=== PATIENT | female | born 1965 | race Caucasian/White ===

== ENCOUNTER 2017-06-10 14:43 | Emergency (ER) | payer MEDICAID ==
[2017-06-10 14:53] VITALS: BMI 41.8
[2017-06-10] MEDS ORDERED: Sodium Chloride 0.9% 1,000 ML IV STA (15:19)
[2017-06-10 15:43] LABS: BASO # 0.03 K/mm3 (0.0-2.0); BASO % 0.4 % (0.0-3.0); EOS # 0.1 (0.0-0.7); EOS % 1.2 % (1.5-5.0); GRAN # 5.25 (1.4-6.5); GRAN % 68.8 % (50.0-68.0); HEMOGLOBIN 11.3 g/dL (12.0-16.0); LYMPH # 1.4 (1.2-3.4); LYMPH % 18.8 % (22.0-35.0); MEAN CELL VOLUME 66.5 fl (80.0-105.0); MEAN CORPUSCULAR HEMOGLOBIN 20.9 pg (25.0-35.0); MEAN CORPUSCULAR HGB CONC 31.4 g/dl (31.0-37.0); MONO # 0.8 (0.1-0.6); MONO % 10.8 % (1.0-6.0); PLATELET COUNT 275 10^3/uL (120.0-450.0); RBC 5.41 10^6/uL (3.5-6.1); RED CELL DISTRIBUTION WIDTH 15.8 % (11.5-14.5); WHITE BLOOD COUNT 7.6 10^3/ul (4.5-11.0)
[2017-06-10 16:07] LABS: ALB/GLOB RATIO 1.2 (1.1-1.8); ALBUMIN 3.9 g/dL (3.0-4.8); ALT/SGPT 36 U/L (7-56); AST/SGOT 28 U/L (14-36); BLOOD UREA NITROGEN 13 mg/dL (7-21); CALCIUM 9.5 mg/dL (8.4-10.5); GFR AFRICAN-AMERICAN > 60; GFR NON-AFRICAN AMERICAN > 60
[2017-06-10 16:21] LABS: URINE BILIRUBIN NEGATIVE (NEGATIVE); URINE BLOOD NEGATIVE (NEGATIVE); URINE GLUCOSE (UA) NEGATIVE (NEGATIVE); URINE LEUKOCYTE ESTERASE NEGATIVE Leu/uL (NEGATIVE); URINE NITRATE NEGATIVE (NEGATIVE); URINE PROTEIN TRACE mg/dL (<30 mg/dL); URINE UROBILINOGEN 0.2 E.U./dL (<1 E.U./dL)
[2017-06-10 16:24] LABS: URINE APPEARANCE CLEAR (CLEAR); URINE COLOR YELLOW (YELLOW)
[2017-06-10] MEDS ORDERED: Promethazine/Cod 6.25mg-10mg/5ml Syr UD PO STA (16:32)
[2017-06-10 16:39] LABS: URINE BACTERIA MOD (NEG); URINE RBC NEGATIVE /hpf (0-2)
--- NOTE | 2017-06-10 17:37 | ED PDOC ---
Arrival/HPI - General Chief Complaint: Fever Time Seen by Provider: 06/10/17 15:16 Historian: Patient - History of Present Illness Narrative History of Present Illness (Text): 06/10/17 15:17 This 52 yo female with PMHx DM, asthma, presents to this ED c/o cough, fever, nasal congestion x 2 days. Patient stated she is currently taking ABX. Patient denies recent travel, sick contact, abdominal pain, skin rash, dizziness , or abnormal gait. Patient noted vomiting phlegm from nasal congestion. Time/Duration: Other (see hpi) Context: Home Past Medical History - Provider Review Nursing Documentation Reviewed: Yes - Past History Past History: Non-Contributing - Infectious Disease Hx of Infectious Diseases: None - Tetanus Immunization Tetanus Immunization: Unknown - Past Medical History Past Medical History: Non-Contributing - Cardiac Hx Cardiac Disorders: No - Pulmonary Hx Respiratory Disorders: Yes Hx Asthma: Yes Hx Pneumonia: Yes - Neurological Hx Neurological Disorder: No - HEENT Hx HEENT Disorder: No - Renal Hx Renal Disorder: No - Endocrine/Metabolic Hx Endocrine Disorders: Yes Hx Diabetes Mellitus Type 2: Yes - Hematological/Oncological Hx Blood Disorders: No - Integumentary Hx Dermatological Disorder: No - Musculoskeletal/Rheumatological Hx Falls: No - Gastrointestinal Hx Gastrointestinal Disorders: No - Genitourinary/Gynecological Hx Genitourinary Disorders: No - Psychiatric Hx Psychophysiologic Disorder: No Hx Depression: No Hx Emotional Abuse: No Hx Physical Abuse: No Hx Substance Use: No - Surgical History Hx Section: Yes (x3) - Anesthesia Hx Anesthesia: Yes Hx Anesthesia Reactions: No Hx Malignant Hyperthermia: No - Suicidal Assessment Feels Threatened In Home Enviroment: No Family/Social History - Physician Review Nursing Documentation Reviewed: Yes Family/Social History: Other (noncontributory) Smoking Status: Never Smoked Hx Alcohol Use: No Hx Substance Use: No Hx Substance Use Treatment: No Allergies/Home Meds Allergies/Adverse Reactions: Allergies azithromycin Allergy (Mild, Verified 06/04/17 14:51) RASH Home Medications: Home Meds Medication Instructions Recorded Confirmed Sitagliptin Phos/Metformin HCl 1 tab PO BID 05/28/17 06/10/17 [Janumet 50-1,000 mg Tablet] Review of Systems - Review of Systems Constitutional: Fevers. absent: Fatigue, Weight Change, Night Sweats Eyes: Normal. absent: Vision Changes ENT: Sore Throat, Rhinorrhea. absent: Epistaxis, Sinus Congestion Respiratory: Cough Cardiovascular: Normal. absent: Chest Pain, Palpitations, Syncope Gastrointestinal: Normal. absent: Abdominal Pain, Nausea, Vomiting Genitourinary Female: Normal Musculoskeletal: Myalgias Skin: Normal. absent: Rash Neurological: Normal. absent: Headache, Dizziness, Focal Weakness, Gait Changes , Speech Changes, Facial Droop, Disequilibrium Endocrine: Normal Hemo/Lymphatic: Normal Psychiatric: Normal Physical Exam Vital Signs Temp Pulse Resp BP Pulse Ox 06/10/17 16:00 100.8 F H 06/10/17 14:52 100.8 F H 103 H 18 117/76 95 Temperature: Febrile Blood Pressure: Normal Pulse: Regular Respiratory Rate: Normal Appearance: Positive for: Well-Appearing, Non-Toxic, Comfortable Pain Distress: None Mental Status: Positive for: Alert and Oriented X 3 - Systems Exam Head: Present: Atraumatic, Normocephalic Pupils: Present: PERRL Extroacular Muscles: Present: EOMI Conjunctiva: Present: Normal Mouth: Present: Moist Mucous Membranes Pharnyx: Present: Normal. No: ERYTHEMA, EXUDATE, TONSILS ENLARGED Nose (External): Present: Atraumatic Nose (Internal): Present: Rhinorrhea Neck: Present: Normal Range of Motion Respiratory/Chest: Present: Clear to Auscultation, Good Air Exchange. No: Respiratory Distress, Accessory Muscle Use, Wheezes, Rales, Retracting, Rhonchi , Tachypneic Cardiovascular: Present: Regular Rate and Rhythm, Normal S1, S2. No: Murmurs Abdomen: Present: Normal Bowel Sounds. No: Tenderness, Distention, Peritoneal Signs, Rebound, Guarding Back: Present: Normal Inspection. No: CVA Tenderness Upper Extremity: Present: Normal Inspection, Normal ROM. No: Cyanosis, Edema Lower Extremity: Present: Normal Inspection, Normal ROM. No: Edema Neurological: Present: GCS=15, CN II-XII Intact, Speech Normal, Motor Func Grossly Intact, Normal Sensory Function, Normal Cerebellar Funct, Gait Normal Skin: Present: Warm, Dry, Normal Color. No: Rashes Psychiatric: Present: Alert, Oriented x 3, Normal Insight, Normal Concentration Medical Decision Making ED Course and Treatment: 06/10/17 17:42 Patient remained stable during the course of ED visit. Labs were normal. CXR: NAD. Patient stated she feels well and she wishes to be discharged home. Denies cp, n/v, or urinary symptoms. Lungs CTA b/l. Re-evaluation Time: 17:43 Reassessment Condition: Re-examined, Improved - Lab Interpretations Lab Results: 06/10/17 15:30 06/10/17 15:30 Lab Results 06/10/17 15:51: Urine Color Yellow, Urine Appearance Clear, Urine pH 6.0, Ur Specific [place] 1.025, Urine Protein Trace H, Urine Glucose (UA) Negative, Urine Ketones Negative, Urine Blood Negative, Urine Nitrate Negative, Urine Bilirubin Negative, Urine Urobilinogen 0.2, Ur Leukocyte Esterase Negative, Urine RBC Negative, Urine WBC 2 - 5, Ur Epithelial Cells 4 - 5, Urine Bacteria Mod 06/10/17 15:30: Influenza Typ A,B (EIA) Negative for flu a/b 06/10/17 15:30: Sodium 132, Potassium 3.9, Chloride 100, Carbon Dioxide 25, Anion Gap 11, BUN 13, Creatinine 0.8, Est GFR ( Amer) > 60, Est GFR (Non- Af Amer) > 60, Random Glucose 113 H, Calcium 9.5, Total Bilirubin 0.3, AST 28, ALT 36, Alkaline Phosphatase 63, Total Protein 7.1, Albumin 3.9, Globulin 3.2, Albumin/Globulin Ratio 1.2 06/10/17 15:30: WBC 7.6 D, RBC 5.41, Hgb 11.3 L, Hct 36.0, MCV 66.5 L D, MCH 20.9 L, MCHC 31.4, RDW 15.8 H, Plt Count 275, Gran % 68.8 H, Lymph % (Auto) 18.8 L, Harmon % (Auto) 10.8 H, Eos % (Auto) 1.2 L, Baso % (Auto) 0.4, Gran # 5.25 , Lymph # 1.4, Harmon # 0.8 H, Eos # 0.1, Baso # 0.03 I have reviewed the lab results: Yes Interpretation: No clinic. lab abnormalty - RAD Interpretation Narrative RAD Interpretations (Text): 06/10/17 17:43 Chest x-rays: NAD Radiology Orders: 06/10/17 15:20 CHEST TWO VIEWS (PA/LAT) [RAD] Stat - Medication Orders Current Medication Orders: Discontinued Medications Acetaminophen (Tylenol 325mg Tab) 975 mg PO STAT STA Stop: 06/10/17 15:22 Last Admin: 06/10/17 16:00 Dose: 975 mg MAR Pain/Vitals Document 06/10/17 16:00 SE (Rec: 06/10/17 16:00 [id number] Pain Reassessment Is This A Pain ReAssessment? No Sleep Is patient sleeping during reassessment? No Presence of Pain Presence of Pain Yes Vitals Temperature (97.6 F-99.6 F) 100.8 F Temperature Source Oral Benzonatate (Tessalon Perles) 100 mg PO STAT STA Stop: 06/10/17 16:32 Last Admin: 06/10/17 16:40 Dose: 100 mg Sodium Chloride (Sodium Chloride 0.9%) 1,000 mls @ 999 mls/hr IV .Q1H1M STA Stop: 06/10/17 16:19 Last Admin: 06/10/17 15:32 Dose: 999 mls/hr eMAR Start Stop Document 06/10/17 15:32 SE (Rec: 06/10/17 15:32 SE [id number]) Intravenous Solution Start Date 06/10/17 Start Time 15:32 Ketorolac Tromethamine (Toradol) 15 mg IVP STAT STA Stop: 06/10/17 15:21 Last Admin: 06/10/17 16:00 Dose: 15 mg MAR Pain Assessment Document 06/10/17 16:00 SE (Rec: 06/10/17 16:00 [id number] Pain Reassessment Is this a pain reassessment? No Sleep Is patient sleeping during reassessment? No Presence of Pain Presence of Pain Yes Pain Scale Used Pain Scale Used Numeric Location Pain Location Body Site Chest Description Description Burning IVP Administration Document 06/10/17 16:00 SE (Rec: 06/10/17 16:00 [id number]) Charges for Administration # of IVP Administrations 1 Promethazine HCl/Codeine (Phenergan/Codeine Oral Syrup) 5 ml PO STAT STA Stop: 06/10/17 16:33 Last Admin: 06/10/17 16:40 Dose: 5 ml Disposition/Present on Arrival - Present on Arrival Any Indicators Present on Arrival: No History of DVT/PE: No History of Uncontrolled Diabetes: Yes Urinary Catheter: No History of Decub. Ulcer: No History Surgical Site Infection Following: None - Disposition Have Diagnosis and Disposition been Completed?: Yes Diagnosis: Viral syndrome Disposition: HOME/ ROUTINE Disposition Time: 17:45 Patient Plan: Discharge Patient Problems: Current Active Problems Problem Status Onset Viral syndrome Acute Condition: GOOD Discharge Instructions (ExitCare): Viral Syndrome (ED) Additional Instructions: Call private doctor for follow up visit in 1-2 days. Take medication as instructed. Return to emergency if symptoms worsen. Prescriptions: Acetaminophen [Tylenol 325mg tab] 975 mg PO Q4H PRN #30 tab PRN Reason: Fever >100.4 F Promethazine/Codeine [Codeine/Promethazine 10 MG/5 Ml-6.25 MG/5 Ml] 5 ml PO Q4H PRN #120 ml PRN Reason: Cough Referrals: Jess Barrera MD [Family Provider] - Follow up with primary Forms: [employer] (French)
[2017-06-10 17:52] VITALS: BP 120/89; PULSE 99; RESP 17; TEMP 98.3; O2SAT 100
--- NOTE | 2017-06-10 18:53 | RAD ---
HISTORY: cough COMPARISON: 06/06/2017 TECHNIQUE: Chest PA and lateral FINDINGS: LUNGS: No active pulmonary disease. PLEURA: No significant pleural effusion identified. No pneumothorax apparent. CARDIOVASCULAR: Normal. OSSEOUS STRUCTURES: No significant abnormalities. VISUALIZED UPPER ABDOMEN: Normal. OTHER FINDINGS: None. IMPRESSION: No active disease. No significant interval change compared to the prior examination(s). Concordant results with the preliminary interpretation rendered by the emergency department physician procedure.
== END 2017-06-10 18:10 | disposition home or self-care (01) ==
LOC: ED 14:43
DX: B34.9 Viral infection, unspecified (principal); E11.9 Type 2 diabetes mellitus without complications
CPT/HCPCS: 71046; 80053; 81001; 85025; 87804; 96374; 99285; J1885; J7040

== ENCOUNTER 2017-07-26 07:54 | Day surgery (SDC) | payer MEDICAID ==
[2017-07-20 13:53] VITALS: BMI 42.0
[2017-07-26 08:35] VITALS: RESP 14
[2017-07-26] MEDS ORDERED: Albuterol 0.083% Inhal Sol (2.5 mg/3 mL) UD INH PRN (09:13)
[2017-07-26] MEDS ORDERED: Albuterol 0.083% Inhal Sol (2.5 mg/3 mL) UD ONE (09:15)
[2017-07-26] MEDS ORDERED: Sodium Chloride 0.9% 1,000 ML IV SCH (09:45)
[2017-07-26] MEDS ORDERED: Propofol 10 mg/ml Inj (20 ML) ONE (09:49)
[2017-07-26 11:37] VITALS: BP 97/57; PULSE 80; TEMP 98; O2SAT 97
== END 2017-07-26 12:17 | disposition home or self-care (01) ==
LOC: ENDO 07:54 → MERGE 07:54 → EDSEX 07:54 → ENDO 12:17
PROVIDERS: ATTEND Internal Medicine
DX: Z12.11 Encounter for screening for malignant neoplasm of colon (principal); K63.5 Polyp of colon; K64.8 Other hemorrhoids; I10 Essential (primary) hypertension; J45.909 Unspecified asthma, uncomplicated; E11.9 Type 2 diabetes mellitus without complications; Z79.84 Long term (current) use of oral hypoglycemic drugs
CPT/HCPCS: 45380; 82948; 88305; 94640; 94760; J2001; J2704; J7040 ×2

== ENCOUNTER 2017-08-16 06:18 | Day surgery (SDC) | payer MEDICAID ==
[2017-08-16] MEDS ORDERED: Albuterol 0.5% Inhal Sol (5 mg/ ml) 20 ml IH ONE (07:46)
[2017-08-16] MEDS ORDERED: Albuterol 0.083% Inhal Sol (2.5 mg/3 mL) UD ONE (07:52)
[2017-08-16] MEDS ORDERED: Propofol 10 mg/ml Inj (20 ML) ONE (08:16)
[2017-08-16 09:03] VITALS: PULSE 89
[2017-08-16 09:33] VITALS: BP 101/57; RESP 14; TEMP 97.6; O2SAT 95
[2017-08-16 09:35] VITALS: BMI 41.8
== END 2017-08-16 10:45 | disposition home or self-care (01) ==
LOC: ENDO 06:18
PROVIDERS: ATTEND Internal Medicine
DX: K29.50 Unspecified chronic gastritis without bleeding (principal); B96.81 Helicobacter pylori [H. pylori] as the cause of diseases classified elsewhere; K21.9 Gastro-esophageal reflux disease without esophagitis; E11.9 Type 2 diabetes mellitus without complications; J45.909 Unspecified asthma, uncomplicated; Z80.8 Family history of malignant neoplasm of other organs or systems; Z83.3 Family history of diabetes mellitus; Z86.19 Personal history of other infectious and parasitic diseases; Z86.010 Personal history of colon polyps; Z87.891 Personal history of nicotine dependence
CPT/HCPCS: 43239; 82948; 84703; 88305; 88342; J2001; J2704; J7040

== ENCOUNTER 2018-04-23 09:56 | Emergency (ER) | payer MEDICAID ==
[2018-04-23 09:57] VITALS: BMI 41.8
[2018-04-23 10:08] VITALS: PULSE 98; RESP 19; TEMP 98; O2SAT 99
--- NOTE | 2018-04-23 10:34 | ED PDOC ---
Arrival/HPI <Se Gil - Last Filed: 04/23/18 11:21> - General Historian: Patient, Family - History of Present Illness Narrative History of Present Illness (Text): 04/23/18 10:26 This is a 52 y o female with past medical hx DM2, asthma who was BiBEMS s/p fall at home 30 mins prior. Pt states the roof was leaking in her house and there was water all over the floor, states she slipped and fell on L hip with outstretched L leg. States she also hit back of head against wall. Fall was unwitnessed. Pt states her family came into the room after the event and guided her to sit in a chair because she was unable to get up on her own. Denies loss of consciousness or headache. States her L posterior upper thigh and hip are bothering her currently, describes pain as sharp, rates it 8/10 currently. States she has hx of chronic pain in R hip that is worse when she first wakes up, and took 1 tab of 400 mg ibuprofen this am before she fell. Denies vision changes, dizziness, chest pain, sob, n/v/d/c, abd pain, urinary complaints, or other symptoms currently. PMhx: DM2, asthma, chronic pain in R hip PSurgHx: C/s x 3 Allergies: NKDA Meds: Takes metformin, several medications for her asthma (pt unsure of names or dosages) Fam hx: denies Soc hx: denies smoking, EtOH, or illicit drug use PMD: Dr. Barrera Pharmacy: [facility] Time/Duration: 1/2 hour Symptom Onset: Sudden Symptom Course: Unchanged Quality: Stabbing Severity Level: 8 Activities at Onset: Other (Status post fall) Context: Walking, Slipped <Bony Saab - Last Filed: 04/23/18 11:26> - General Chief Complaint: Hip Pain Past Medical History - Provider Review Nursing Documentation Reviewed: Yes - Past History Past History: Non-Contributing - Infectious Disease Hx of Infectious Diseases: None - Tetanus Immunization Tetanus Immunization: Unknown - Reproductive Menopause: Yes - Past Medical History Past Medical History: Non-Contributing - Cardiac Hx Pacemaker: No - Pulmonary Hx Respiratory Disorders: Yes Hx Asthma: Yes Hx Pneumonia: Yes - Neurological Hx Paralysis: No - HEENT Hx HEENT Disorder: No - Renal Hx Renal Disorder: No - Endocrine/Metabolic Hx Endocrine Disorders: Yes Hx Diabetes Mellitus Type 2: Yes - Hematological/Oncological Hx Blood Transfusions: No - Integumentary Hx Dermatological Disorder: No - Musculoskeletal/Rheumatological Hx Musculoskeletal Disorders: No - Gastrointestinal Hx Gastrointestinal Disorders: No - Genitourinary/Gynecological Hx Genitourinary Disorders: No - Psychiatric Hx Emotional Abuse: No Hx Physical Abuse: No Hx Substance Use: No - Surgical History Hx Section: Yes (x3) - Anesthesia Hx Anesthesia: Yes Hx Anesthesia Reactions: No Hx Malignant Hyperthermia: No - Suicidal Assessment Feels Threatened In Home Enviroment: No <Bony Saab - Last Filed: 04/23/18 11:26> Family/Social History - Physician Review Nursing Documentation Reviewed: Yes Family/Social History: No Known Family HX Smoking Status: Never Smoked Hx Alcohol Use: No Hx Substance Use: No Hx Substance Use Treatment: No <Bony Saab - Last Filed: 04/23/18 11:26> Allergies/Home Meds <Se Gil - Last Filed: 04/23/18 11:21> <Bony Saab - Last Filed: 04/23/18 11:26> Allergies/Adverse Reactions: Allergies No Known Allergies Allergy (Unverified 08/16/17 07:59) Home Medications: Home Meds Medication Instructions Recorded Confirmed Albuterol HFA [Ventolin HFA 90 2 puff INH Q6H PRN 07/20/17 08/16/17 mcg/actuation (8 g)] Alogliptin Hermelindo/Metformin HCl 1 tab PO BID 07/20/17 08/16/17 [Alogliptin-Metformin 12.5-1000] Fexofenadine HCl [Shnai NF] 180 mg PO DAILY 07/20/17 08/16/17 Glipizide [Glucotrol] 5 mg PO BID 07/20/17 08/16/17 Montelukast [Singulair] 10 mg PO DAILY 07/20/17 08/16/17 Multivitamin [Multivitamins] 1 tab PO DAILY 07/20/17 08/16/17 Omeprazole 40 mg PO DAILY 07/20/17 08/16/17 Phentermine/Topiramate [Qsymia 1 cap PO DAILY 07/20/17 08/16/17 3.75 mg-23 mg Capsule] Benzonatate 200 mg PO BID 08/09/17 08/16/17 Budesonide/Formoterol Fumarate 1 puff INH BID 08/09/17 08/16/17 [Symbicort 160-4.5 Mcg Inhaler] Ergocalciferol (Vitamin D2) 50,000 units PO Q7D 08/09/17 08/16/17 [Vitamin D2] Vitamin B Complex 1 tab PO DAILY 08/09/17 08/16/17 Review of Systems - Physician Review All systems were reviewed & negative as marked: Yes <Se Gil - Last Filed: 04/23/18 11:21> - Review of Systems Constitutional: absent: Fatigue Eyes: absent: Vision Changes, Photophobia, Eye Pain ENT: absent: Hearing Changes, Tinnitus Respiratory: absent: SOB, Cough, Wheezing Cardiovascular: absent: Chest Pain, Palpitations, ARMAS Gastrointestinal: absent: Abdominal Pain, Constipation, Diarrhea, Nausea, Vomiting Musculoskeletal: absent: Back Pain, Neck Pain Skin: Normal. absent: Laceration <Bony Saab - Last Filed: 04/23/18 11:26> Physical Exam Vital Signs Reviewed: Yes Vital Signs Temp Pulse Resp BP Pulse Ox 04/23/18 10:02 98 F 98 H 19 115/57 L 99 <Se Gil - Last Filed: 04/23/18 11:21> Vital Signs Reviewed: Yes Vital Signs Temp Pulse Resp BP Pulse Ox 04/23/18 10:02 98 F 98 H 19 115/57 L 99 Temperature: Afebrile Blood Pressure: Normal Pulse: Regular Respiratory Rate: Normal Appearance: Positive for: Well-Appearing, Non-Toxic, Comfortable Pain Distress: Moderate Mental Status: Positive for: Alert and Oriented X 3 - Systems Exam Head: Present: Atraumatic, Normocephalic Pupils: Present: PERRL Extroacular Muscles: Present: EOMI Mouth: Present: Moist Mucous Membranes Respiratory/Chest: Present: Clear to Auscultation, Good Air Exchange. No: Respiratory Distress, Accessory Muscle Use, Wheezes, Rales, Rhonchi Cardiovascular: Present: Regular Rate and Rhythm, Normal S1, S2. No: Murmurs, Rub, Gallop Abdomen: Present: Normal Bowel Sounds. No: Tenderness, Distention, Rebound, Guarding, Mass/Organomegaly Upper Extremity: Present: Normal Inspection, Normal ROM, NORMAL PULSES, Neurovascularly Intact, Capillary Refill < 2s, Norm 2-Pt Discrimination. No: Cyanosis, Edema, Swelling Lower Extremity: Present: Normal Inspection, NORMAL PULSES, Normal ROM, Tenderness (Tenderness to palpation in L posterior upper thigh distal to greater tuberosity), Neurovascularly Intact, Capillary Refill < 2 s. No: Edema, Cyanosis, Erythema, Temperature Abnormalties Neurological: Present: GCS=15, CN II-XII Intact, Speech Normal, Motor Func Gross ly Intact, Normal Sensory Function, Normal Cerebellar Funct, Norm Deep Tendon Reflexes, Normal 2Pt Descrimination. No: Gait Normal (Limping on exam due to pain) Skin: Present: Warm, Dry, Normal Color. No: Rashes Psychiatric: Present: Alert, Oriented x 3, Normal Insight, Normal Concentration <Bony Saab - Last Filed: 04/23/18 11:26> Medical Decision Making ED Course and Treatment: 04/23/18 10:44 Seen and examined with the resident. Our history and physical exam reveals a m orbidly obese woman who slipped and fell on a wet floor injuring her left hip. No other trauma. She appears have pain out of proportion to her exam. The knee and ankle are normal. - RAD Interpretation Radiology Orders: 04/23/18 10:24 Hip Left [HIP MIN 2V W/ PELVIS LT] [RAD] Stat - Medication Orders Current Medication Orders: Discontinued Medications Ketorolac Tromethamine (Toradol) 30 mg IVP STAT STA Stop: 04/23/18 10:24 Last Admin: 04/23/18 10:35 Dose: 30 mg MAR Pain Assessment Document 04/23/18 10:35 GMI (Rec: 04/23/18 10:36 GMI [id number]) Pain Reassessment Is this a pain reassessment? Yes Sleep Is patient sleeping during reassessment? No Presence of Pain Presence of Pain Yes Location Left, Right or Bilateral Left Pain Location Body Site Hip Description Description Intermittent Intensity of Pain at present 5 Pain Behavior Facial Grimacing Alleviating Factors/Management Position Change Techniques Relaxation Techniques Alleviating Factors Distraction IVP Administration Document 04/23/18 10:35 GMI (Rec: 04/23/18 10:36 GMI [id number]) Charges for Administration # of IVP Administrations 1 <Tolerico,Se - Last Filed: 04/23/18 11:21> ED Course and Treatment: 04/23/18 10:39 52 y o female PMhx DM2, asthma, presents with L posterior thigh pain s/p mechanical fall at home. Plan: Toradol IM x1, L hip XR ordered. Will follow results. 04/23/18 11:24 Reassessed pt, states that her pain has improved. XR L hip demonstrates no acute fracture. Pt medically stable for discharge to home, instructed to resume ambulation at home on own. Can follow with PMD Dr. Barrera in 2-3 days after ED discharge. - RAD Interpretation Radiology Orders: 04/23/18 10:24 Hip Left [HIP MIN 2V W/ PELVIS LT] [RAD] Stat - Medication Orders Current Medication Orders: Ketorolac Tromethamine (Toradol) 30 mg IVP STAT STA Stop: 04/23/18 10:24 <Bony Saab - Last Filed: 04/23/18 11:26> Disposition/Present on Arrival <Se Gil - Last Filed: 04/23/18 11:21> - Present on Arrival Any Indicators Present on Arrival: Yes History of DVT/PE: No History of Uncontrolled Diabetes: Yes Urinary Catheter: No History of Decub. Ulcer: No History Surgical Site Infection Following: None - Disposition Have Diagnosis and Disposition been Completed?: Yes Disposition Time: 11:26 <Bony Saab - Last Filed: 04/23/18 11:26> - Disposition Diagnosis: Fall, Injury of left hip and thigh Disposition: HOME/ ROUTINE Patient Problems: Current Active Problems Problem Status Onset Fall Acute Injury of left hip and thigh Acute Condition: IMPROVED Discharge Instructions (ExitCare): Preventing Falls Print Language: [place] Additional Instructions: Please follow-up with your primary care physician within 2-3 days of discharge. Can take Ibuprofen every 6 hrs as needed for pain. Should your symptoms recur or worsen, please call your primary care physician or report to your nearest emergency department. Referrals: Jess Barrera MD [Family Provider] - Follow up with primary Forms: [employer] (Italian)
[2018-04-23 10:46] VITALS: BP 114/52
--- NOTE | 2018-04-23 13:54 | RAD ---
PROCEDURE: Left Hip X-ray Radiographs. HISTORY: L hip pain s/p fall COMPARISON: None. FINDINGS: BONES: Normal. No fracture. JOINTS: Mild degenerative osteoarthritis right hip with joint space narrowing. SOFT TISSUES: Normal. OTHER FINDINGS: None. IMPRESSION: No definitive radiographic evidence of acute displaced fracture nor dislocation. If symptoms persist or occult fracture suspected clinically recommend follow-up CT scan of the pelvis. A mild degenerative osteoarthritis right hip
== END 2018-04-23 11:38 | disposition home or self-care (01) ==
LOC: ED 09:56
DX: S79.912A Unspecified injury of left hip, initial encounter (principal); S79.922A Unspecified injury of left thigh, initial encounter; W01.0XXA Fall on same level from slipping, tripping and stumbling without subsequent striking against object, initial encounter; Y92.009 Unspecified place in unspecified non-institutional (private) residence as the place of occurrence of the external cause; E11.9 Type 2 diabetes mellitus without complications
CPT/HCPCS: 73502; 96374; 99285; J1885

== ENCOUNTER 2018-05-27 11:16 | Emergency (ER) | payer MEDICAID ==
[2018-05-27 11:17] VITALS: BMI 41.8
[2018-05-27 11:58] VITALS: BP 121/65; PULSE 72; RESP 18; TEMP 98.2; O2SAT 100
--- NOTE | 2018-05-27 12:05 | ED PDOC ---
Arrival/HPI - General Chief Complaint: ENT Problem Time Seen by Provider: 05/27/18 11:45 - History of Present Illness Narrative History of Present Illness (Text): 53 year old F not on blood thinners p/w epistaxis x 30 minutes. States bleeding would not stop for 30 minutes. States has had epistaxis multiple times, this is second episode in 2 months and has had in past as well and saw ENT. Patient denies lightheadedness, chest pain, dyspnea, palpitations. Past Medical History - Past History Past History: Non-Contributing - Infectious Disease Hx of Infectious Diseases: None - Tetanus Immunization Tetanus Immunization: Unknown - Past Medical History Past Medical History: Non-Contributing - Cardiac Hx Pacemaker: No - Pulmonary Hx Respiratory Disorders: Yes Hx Asthma: Yes Hx Pneumonia: Yes - Neurological Hx Paralysis: No - HEENT Hx HEENT Disorder: No - Renal Hx Renal Disorder: No - Endocrine/Metabolic Hx Endocrine Disorders: Yes Hx Diabetes Mellitus Type 2: Yes - Hematological/Oncological Hx Blood Transfusions: No - Integumentary Hx Dermatological Disorder: No - Musculoskeletal/Rheumatological Hx Musculoskeletal Disorders: No - Gastrointestinal Hx Gastrointestinal Disorders: No - Genitourinary/Gynecological Hx Genitourinary Disorders: No - Psychiatric Hx Emotional Abuse: No Hx Physical Abuse: No Hx Substance Use: No - Surgical History Hx Section: Yes (x3) - Anesthesia Hx Anesthesia: Yes Hx Anesthesia Reactions: No Hx Malignant Hyperthermia: No - Suicidal Assessment Feels Threatened In Home Enviroment: No Family/Social History Family/Social History: No Known Family HX Smoking Status: Never Smoked Hx Alcohol Use: No Hx Substance Use: No Hx Substance Use Treatment: No Allergies/Home Meds Allergies/Adverse Reactions: Allergies No Known Allergies Allergy (Unverified 08/16/17 07:59) Home Medications: Home Meds Medication Instructions Recorded Confirmed Albuterol HFA [Ventolin HFA 90 2 puff INH Q6H PRN 07/20/17 08/16/17 mcg/actuation (8 g)] Alogliptin Hermelindo/Metformin HCl 1 tab PO BID 07/20/17 08/16/17 [Alogliptin-Metformin 12.5-1000] Fexofenadine HCl [Shani NF] 180 mg PO DAILY 07/20/17 08/16/17 Glipizide [Glucotrol] 5 mg PO BID 07/20/17 08/16/17 Montelukast [Singulair] 10 mg PO DAILY 07/20/17 08/16/17 Multivitamin [Multivitamins] 1 tab PO DAILY 07/20/17 08/16/17 Omeprazole 40 mg PO DAILY 07/20/17 08/16/17 Phentermine/Topiramate [Qsymia 1 cap PO DAILY 07/20/17 08/16/17 3.75 mg-23 mg Capsule] Benzonatate 200 mg PO BID 08/09/17 08/16/17 Budesonide/Formoterol Fumarate 1 puff INH BID 08/09/17 08/16/17 [Symbicort 160-4.5 Mcg Inhaler] Ergocalciferol (Vitamin D2) 50,000 units PO Q7D 08/09/17 08/16/17 [Vitamin D2] Vitamin B Complex 1 tab PO DAILY 08/09/17 08/16/17 Review of Systems - Physician Review All systems were reviewed & negative as marked: Yes - Review of Systems Respiratory: absent: SOB Cardiovascular: absent: Chest Pain Physical Exam - Physical Exam Narrative Physical Exam (Text): Patient instructed to hold pressure correctly for 20 minutes. Bleeding stopped. Gen: NAD head: NC/AT Eyes: No icterus ENT: No active bleeding seen Neck: Supple CV: Regular rate Lungs: No accessory muscle use Extremities: No deformity Skin: No pallor Neuro: Alert, no focal deficit Medical Decision Making ED Course and Treatment: Patient wishes to go home. Instructed to return to Emergency department for worsening bleeding that does not stop with pressure, chest pain, dyspnea, palpitations, lightheadedness, or any other problem. Disposition/Present on Arrival - Present on Arrival Any Indicators Present on Arrival: No History of DVT/PE: No History of Uncontrolled Diabetes: No Urinary Catheter: No History of Decub. Ulcer: No History Surgical Site Infection Following: None - Disposition Have Diagnosis and Disposition been Completed?: Yes Diagnosis: Epistaxis Disposition: HOME/ ROUTINE Disposition Time: 11:57 Patient Plan: Discharge Condition: STABLE Discharge Instructions (ExitCare): Nosebleeds Referrals: Jess Barrera MD [Primary Care Provider] - Follow up with primary
== END 2018-05-27 12:11 | disposition home or self-care (01) ==
LOC: ED 11:16
DX: R04.0 Epistaxis (principal)

== ENCOUNTER 2018-06-16 09:53 | Outpatient (CLI) | payer MEDICAID | END 2018-06-16 09:54 | disposition home or self-care (01) | LOC: RAD 09:53 ==

== ENCOUNTER 2018-09-12 10:41 | Outpatient (CLI) | payer MEDICAID | END 2018-09-12 10:42 | disposition home or self-care (01) | LOC: RAD 10:41 ==

== ENCOUNTER 2018-10-13 09:58 | Outpatient (CLI) | payer MEDICAID | END 2018-10-13 09:59 | disposition home or self-care (01) | LOC: RAD 09:58 ==